=== PATIENT | male | born 1940 | race Hispanic/Latino ===

== ENCOUNTER 2017-10-26 09:24 | Inpatient (IN) | payer MEDICARE ==
[~2017-10-26] VITALS: Ht 167.6 cm; Wt 90.5 kg
[~2017-10-26 09:24] MED LIST: AEC81 PO; ALLO100T PO; CLOP75TA32 PO; FURO40TA5 PO; METO100T14 PO; METO2.5T2 PO; PRAV40TA3 PO; PRED10TA3 PO; ROSU10TA PO; TYL3 PO
[2017-10-26] MEDS ORDERED: DIATR MEGLU/DIATRIZOATE SODIUM 30 ML BOTTLE ONE (09:56)
[2017-10-26 09:57] LABS: BASOPHILS % (AUTO) 0.6 % (0.0-5.0); EOSINOPHILS % (AUTO) 0.5 % (0.0-8.0); HEMATOCRIT 40.4 % (42-54); LYMPHOCYTES % (AUTO) 19.8 % (21.0-51.0); MEAN CORPUSCULAR HEMOGLOBIN 28.4 pg (27.0-33.0); MEAN CORPUSCULAR HGB CONC 33.1 g/dL (32.0-36.0); MEAN CORPUSCULAR VOLUME 85.8 fL (79-99); MONOCYTES % (AUTO) 5.9 % (3.0-13.0); NEUTROPHILS % (AUTO) 73.2 % (40.0-77.0); NUCLEATED RED BLOOD CELLS 0.2 % (0.0-0.19); PLATELET COUNT (AUTO) 241 K/uL (130-400); RED CELL DISTRIBUTION WIDTH 18.3 % (11.0-15.5); WHITE BLOOD COUNT (AUTO) 8.5 K/uL (4.8-10.8)
[2017-10-26] MEDS ORDERED: LEVOFLOXACIN 500 MG/D5W 100 ML 100 ML ONE (09:58)
[2017-10-26 10:04] LABS: POTASSIUM 4.2 mmol/L (3.5-5.1)
[2017-10-26 10:11] LABS: ALBUMIN 2.9 g/dL (3.5-5.0); BILIRUBIN,DIRECT 0.1 mg/dL (0.0-0.3); BILIRUBIN,TOTAL 0.3 mg/dL (0.2-1.0); TOTAL PROTEIN, SERUM 7.3 g/dL (6.0-8.3)
[2017-10-26 10:19] LABS: APPEARANCE,URINE TURBID (CLEAR); BILIRUBIN,URINE NEGATIVE (NEGATIVE); GLUCOSE, URINE (UA) NEGATIVE (NEGATIVE); KETONES,URINE NEGATIVE (NEGATIVE); LEUKOCYTE ESTERASE ,URINE LARGE (NEGATIVE); NITRATE,URINE POSITIVE (NEGATIVE); OCCULT BLOOD,URINE LARGE (NEGATIVE); PH,URINE 6.5 (5.0-8.0); PROTEIN,URINE 30 (NEGATIVE); UROBILINOGEN,URINE 0.2 mg/dL (0.2-1.0)
[2017-10-26 10:20] LABS: COLOR,URINE Amber (YELLOW)
[2017-10-26 10:27] LABS: BACTERIA,URINE Many /HPF (None Seen); RBC,URINE 51-100 /HPF (0-1); SQUAMOUS EPITHELIAL CELL,UR 0-2 /LPF (0-2); WBC,URINE TNTC /HPF (0-1)
[2017-10-26] MEDS ORDERED: CLONIDINE HCL 0.1 MG TABLET PO PRN (15:15)
[2017-10-26] MEDS ORDERED: DIPHENHYDRAMINE HCL 25 MG CAPSULE PO PRN (15:15)
[2017-10-26 15:59] VITALS: BP 140/92
[2017-10-26] MEDS ORDERED: TRAM50TA4 PO (18:13)
[2017-10-26] MEDS ORDERED: LEVO500T2 PO (18:13)
[2017-10-26] MEDS ORDERED: PENI500T2 PO (18:13)
[2017-10-26] MEDS ORDERED: ATOR40TA69 PO (18:13)
[2017-10-26 19:38] VITALS: BP 115/79
[2017-10-26] MEDS ORDERED: TRAMADOL HCL 50 MG TABLET PO PRN (20:00)
[2017-10-26] MEDS: ATORVASTATIN CALCIUM 40 MG TABLET PO SCH (21:23)
[2017-10-26 23:40] VITALS: BP 111/68
[2017-10-27 03:54] LABS: HEMATOCRIT 38.3 % (42-54); MEAN CORPUSCULAR HEMOGLOBIN 27.9 pg (27.0-33.0); MEAN CORPUSCULAR HGB CONC 32.5 g/dL (32.0-36.0); MEAN CORPUSCULAR VOLUME 85.8 fL (79-99); PLATELET COUNT (AUTO) 243 K/uL (130-400); RED BLOOD CELL COUNT(AUTO) 4.46 MIL/uL (4.50-6.20); RED CELL DISTRIBUTION WIDTH 18.8 % (11.0-15.5); WHITE BLOOD COUNT (AUTO) 7.6 K/uL (4.8-10.8)
[2017-10-27 03:58] VITALS: BP 101/63
[2017-10-27 04:05] LABS: INR 1.05 (0.85-1.15)
[2017-10-27 04:06] LABS: CREATININE 2.2 mg/dL (0.5-1.5); POTASSIUM 4.1 mmol/L (3.5-5.1)
[2017-10-27 07:00] VITALS: BP 93/47
[2017-10-27] MEDS: Metoprolol Tartrate 100 MG PO SCH ×2 (09:00→20:49)
[2017-10-27] MEDS: PREDNISONE 10 MG TABLET PO SCH (09:19)
[2017-10-27] MEDS: FUROSEMIDE 40 MG TABLET PO SCH (09:19)
[2017-10-27] MEDS: ALLOPURINOL 100 MG TABLET PO SCH (09:19)
[2017-10-27] MEDS: ASPIRIN 81 MG EC TAB PO SCH (09:19)
[2017-10-27] MEDS: CLOPIDOGREL BISULFATE 75 MG TAB PO SCH (09:19)
[2017-10-27] MEDS: ENOXAPARIN SODIUM 40 MG/0.4 ML SYRINGE SQ SCH (09:20)
[2017-10-27 11:28] VITALS: BP 95/52
[2017-10-27 16:00] VITALS: BP 119/77
[2017-10-27 19:00] VITALS: BP 137/84
[2017-10-27] MEDS: ATORVASTATIN CALCIUM 40 MG TABLET PO SCH (20:45)
[2017-10-28] VITALS (7 sets, daily range): BP systolic 98–131; BP diastolic 55–85
[2017-10-28 03:57] LABS: HEMATOCRIT 37.7 % (42-54); MEAN CORPUSCULAR HEMOGLOBIN 28.1 pg (27.0-33.0); MEAN CORPUSCULAR HGB CONC 32.5 g/dL (32.0-36.0); MEAN CORPUSCULAR VOLUME 86.7 fL (79-99); NUCLEATED RED BLOOD CELLS 0.2 % (0.0-0.19); PLATELET COUNT (AUTO) 253 K/uL (130-400); RED BLOOD CELL COUNT(AUTO) 4.35 MIL/uL (4.50-6.20); RED CELL DISTRIBUTION WIDTH 18.7 % (11.0-15.5); WHITE BLOOD COUNT (AUTO) 8.8 K/uL (4.8-10.8)
[2017-10-28 04:13] LABS: INR 1.05 (0.85-1.15); PARTIAL THROMBOPLASTIN TIME 25.4 SEC (26.3-35.5)
[2017-10-28 04:30] LABS: ALANINE AMINOTRANSFERASE 27 U/L (12-78); ALBUMIN 2.5 g/dL (3.5-5.0); AMMONIA < 3 umol/L (11-32); ASPARTATE AMINOTRANSFERASE 18 U/L (10-37); BILIRUBIN,TOTAL 0.3 mg/dL (0.2-1.0); CARBON DIOXIDE 32 mmol/L (21-32); CHLORIDE 102 mmol/L (101-111); CREATININE 2.3 mg/dL (0.5-1.5); GLOMERULAR FILTR. RATE CALC 30 mL/min (>60); GLUCOSE,RANDOM 143 mg/dL (70-105); POTASSIUM 3.8 mmol/L (3.5-5.1); SODIUM SERUM 143 mmol/L (136-145); TOTAL PROTEIN, SERUM 6.3 g/dL (6.0-8.3); UREA NITROGEN, BLOOD 37 mg/dL (7-18)
[2017-10-28] MEDS: CLOPIDOGREL BISULFATE 75 MG TAB PO SCH (09:00)
[2017-10-28] MEDS: Metoprolol Tartrate 100 MG PO SCH ×2 (09:00→20:20)
[2017-10-28] MEDS: PREDNISONE 10 MG TABLET PO SCH (09:40)
[2017-10-28] MEDS: ALLOPURINOL 100 MG TABLET PO SCH (09:41)
[2017-10-28] MEDS: FUROSEMIDE 40 MG TABLET PO SCH (09:41)
[2017-10-28] MEDS: ASPIRIN 81 MG EC TAB PO SCH (09:41)
[2017-10-28] MEDS: ENOXAPARIN SODIUM 40 MG/0.4 ML SYRINGE SQ SCH (09:42)
[2017-10-28] MEDS ORDERED: MEROPENEM 1GM IVPB PREMIXED 1 GM IV SCH (13:45)
[2017-10-28] MEDS: MEROPENEM 1 GM VIAL IVP SCH ×2 (15:55→20:15)
[2017-10-28] MEDS ORDERED: PHARMACY COMMUNICATION MISC SCH (18:30)
[2017-10-28] MEDS ORDERED: GLUCAGON 1MG KIT 1 MG ML IM PRN (18:30)
[2017-10-28] MEDS ORDERED: DEXTROSE 50%-WATER 50 ML DISP.SYRIN IV PRN (18:30)
[2017-10-28] MEDS ORDERED: HUMALOG PO SS1 SQ SCH (19:15)
[2017-10-28] MEDS: ATORVASTATIN CALCIUM 40 MG TABLET PO SCH (20:16)
[2017-10-29 03:45] VITALS: BP 117/75
[2017-10-29] MEDS: MEROPENEM 1 GM VIAL IVP SCH ×3 (05:22→20:48)
[2017-10-29] MEDS: INSULIN LISPRO 100 UNIT/ML 3ML SQ SCH ×2 (06:13→20:59)
[2017-10-29 08:00] VITALS: BP 105/71
[2017-10-29] MEDS: ENOXAPARIN SODIUM 40 MG/0.4 ML SYRINGE SQ SCH (08:51)
[2017-10-29] MEDS: ALLOPURINOL 100 MG TABLET PO SCH (08:51)
[2017-10-29] MEDS: FUROSEMIDE 40 MG TABLET PO SCH (08:53)
[2017-10-29] MEDS: PREDNISONE 10 MG TABLET PO SCH (08:53)
[2017-10-29] MEDS: ASPIRIN 81 MG EC TAB PO SCH (08:53)
[2017-10-29] MEDS: Metoprolol Tartrate 100 MG PO SCH ×2 (08:54→21:00)
[2017-10-29 11:37] VITALS: BP 105/62
[2017-10-29 16:01] VITALS: BP 111/73
[2017-10-29 19:00] VITALS: BP 115/76
[2017-10-29] MEDS: ATORVASTATIN CALCIUM 40 MG TABLET PO SCH (20:48)
[2017-10-29 23:00] VITALS: BP 114/70
[2017-10-30 03:00] VITALS: BP 92/60
[2017-10-30 04:00] LABS: BASOPHILS % (AUTO) 0.5 % (0.0-5.0); EOSINOPHILS % (AUTO) 0.3 % (0.0-8.0); HEMATOCRIT 39.5 % (42-54); LYMPHOCYTES % (AUTO) 22.4 % (21.0-51.0); MEAN CORPUSCULAR HEMOGLOBIN 28.5 pg (27.0-33.0); MEAN CORPUSCULAR HGB CONC 32.8 g/dL (32.0-36.0); MEAN CORPUSCULAR VOLUME 86.7 fL (79-99); MONOCYTES % (AUTO) 8.1 % (3.0-13.0); NEUTROPHILS % (AUTO) 68.7 % (40.0-77.0); NUCLEATED RED BLOOD CELLS 0.2 % (0.0-0.19); PLATELET COUNT (AUTO) 247 K/uL (130-400); RED BLOOD CELL COUNT(AUTO) 4.56 MIL/uL (4.50-6.20); RED CELL DISTRIBUTION WIDTH 18.7 % (11.0-15.5); WHITE BLOOD COUNT (AUTO) 10.3 K/uL (4.8-10.8)
[2017-10-30 04:15] LABS: ALBUMIN 2.5 g/dL (3.5-5.0); BILIRUBIN,TOTAL 0.3 mg/dL (0.2-1.0); CREATININE 1.9 mg/dL (0.5-1.5); POTASSIUM 4.1 mmol/L (3.5-5.1); TOTAL PROTEIN, SERUM 6.4 g/dL (6.0-8.3)
[2017-10-30] MEDS: MEROPENEM 1 GM VIAL IVP SCH ×3 (05:57→21:06)
[2017-10-30] MEDS: INSULIN LISPRO 100 UNIT/ML 3ML SQ SCH ×2 (05:58→17:31)
[2017-10-30 08:00] VITALS: BP 112/54
[2017-10-30] MEDS: ENOXAPARIN SODIUM 40 MG/0.4 ML SYRINGE SQ SCH (09:04)
[2017-10-30] MEDS: ASPIRIN 81 MG EC TAB PO SCH (09:04)
[2017-10-30] MEDS: ALLOPURINOL 100 MG TABLET PO SCH (09:04)
[2017-10-30] MEDS: PREDNISONE 10 MG TABLET PO SCH (09:05)
[2017-10-30] MEDS: FUROSEMIDE 80 MG TABLET PO SCH (09:05)
[2017-10-30] MEDS: Metoprolol Tartrate 100 MG PO SCH ×2 (09:15→21:00)
[2017-10-30 12:00] VITALS: BP 115/65
[2017-10-30 16:00] VITALS: BP 109/68
[2017-10-30 19:00] VITALS: BP 122/72
[2017-10-30] MEDS: ATORVASTATIN CALCIUM 40 MG TABLET PO SCH (21:01)
[2017-10-30 23:00] VITALS: BP 117/73
[2017-10-31 03:00] VITALS: BP 99/53
[2017-10-31] MEDS: MEROPENEM 1 GM VIAL IVP SCH ×3 (06:06→21:15)
[2017-10-31] MEDS: INSULIN LISPRO 100 UNIT/ML 3ML SQ SCH (06:15)
[2017-10-31 06:58] LABS: HEMATOCRIT 41.6 % (42-54); MEAN CORPUSCULAR HGB CONC 31.9 g/dL (32.0-36.0); MEAN CORPUSCULAR VOLUME 87.6 fL (79-99); NUCLEATED RED BLOOD CELLS 0.1 % (0.0-0.19); PLATELET COUNT (AUTO) 276 K/uL (130-400); RED BLOOD CELL COUNT(AUTO) 4.75 MIL/uL (4.50-6.20); RED CELL DISTRIBUTION WIDTH 18.8 % (11.0-15.5); WHITE BLOOD COUNT (AUTO) 11.9 K/uL (4.8-10.8)
[2017-10-31 07:04] LABS: CREATININE 1.8 mg/dL (0.5-1.5); POTASSIUM 4.2 mmol/L (3.5-5.1)
[2017-10-31 08:00] VITALS: BP 114/74
[2017-10-31] MEDS: Metoprolol Tartrate 100 MG PO SCH ×2 (09:00→21:00)
[2017-10-31] MEDS: ASPIRIN 81 MG EC TAB PO SCH (09:54)
[2017-10-31] MEDS: ALLOPURINOL 100 MG TABLET PO SCH (09:54)
[2017-10-31] MEDS: FUROSEMIDE 80 MG TABLET PO SCH (09:54)
[2017-10-31] MEDS: PREDNISONE 10 MG TABLET PO SCH (09:58)
[2017-10-31] MEDS: ENOXAPARIN SODIUM 40 MG/0.4 ML SYRINGE SQ SCH (10:00)
[2017-10-31 11:00] VITALS: BP 119/77
[2017-10-31] MEDS ORDERED: PEG 3350/NA SULF,BICARB,CL/KCL 4000 ML SOLN PO SCH (13:00)
[2017-10-31 16:00] VITALS: BP 100/60
[2017-10-31 19:00] VITALS: BP 128/85
[2017-10-31] MEDS: ATORVASTATIN CALCIUM 40 MG TABLET PO SCH (21:15)
[2017-10-31 23:00] VITALS: BP 109/67
[2017-11-01] VITALS (25 sets, daily range): BP systolic 102–144; BP diastolic 61–87
[2017-11-01] MEDS: INSULIN LISPRO 100 UNIT/ML 3ML SQ SCH (06:09)
[2017-11-01 06:10] LABS: BASOPHILS % (AUTO) 0.4 % (0.0-5.0); EOSINOPHILS % (AUTO) 0.2 % (0.0-8.0); HEMATOCRIT 46.5 % (42-54); LYMPHOCYTES % (AUTO) 27.1 % (21.0-51.0); MEAN CORPUSCULAR VOLUME 87.5 fL (79-99); MONOCYTES % (AUTO) 7.3 % (3.0-13.0); NUCLEATED RED BLOOD CELLS 0.1 % (0.0-0.19); PLATELET COUNT (AUTO) 350 K/uL (130-400); RED BLOOD CELL COUNT(AUTO) 5.31 MIL/uL (4.50-6.20); RED CELL DISTRIBUTION WIDTH 18.9 % (11.0-15.5); WHITE BLOOD COUNT (AUTO) 17.7 K/uL (4.8-10.8)
[2017-11-01] MEDS: MEROPENEM 1 GM VIAL IVP SCH ×3 (06:12→21:06)
[2017-11-01 06:22] LABS: CREATININE 1.9 mg/dL (0.5-1.5); POTASSIUM 3.7 mmol/L (3.5-5.1)
[2017-11-01] MEDS: PREDNISONE 10 MG TABLET PO SCH (08:00)
[2017-11-01] MEDS: ASPIRIN 81 MG EC TAB PO SCH (09:00)
[2017-11-01] MEDS: ALLOPURINOL 100 MG TABLET PO SCH (09:00)
[2017-11-01] MEDS: Metoprolol Tartrate 100 MG PO SCH (09:00)
[2017-11-01] MEDS: ENOXAPARIN SODIUM 40 MG/0.4 ML SYRINGE SQ SCH (09:00)
[2017-11-01] MEDS ORDERED: SODIUM CHLORIDE 0.9% 1000ML 1,000 ML IV ONE (09:48)
[2017-11-01] MEDS ORDERED: PHENYLEPHRINE HCL 10 MG/ML 1ML VIAL IV ONE (10:15)
[2017-11-01] MEDS ORDERED: DEXAMETHASONE SOD PHOSPHATE 10MG/ML 1ML VIAL ONE (10:15)
[2017-11-01] MEDS ORDERED: MIDAZOLAM HCL 1 MG/ML 2ML VIAL ONE (10:15)
[2017-11-01] MEDS ORDERED: ONDANSETRON HCL MDV 20ML 2 MG/ML VIAL ONE (10:16)
[2017-11-01] MEDS ORDERED: LIDOCAINE HCL MPF 1% 5ML VIAL ONE (10:16)
[2017-11-01] MEDS ORDERED: LIDOCAINE HCL 2% JELLY 5 ML ONE (10:16)
[2017-11-01] MEDS ORDERED: LIDOCAINE HCL 4% LTA SOL 4 ML VIAL ONE (10:16)
[2017-11-01] MEDS ORDERED: SODIUM CHLORIDE 0.9% 10 ML VIAL ONE (10:16)
[2017-11-01] MEDS ORDERED: ROCURONIUM BROMIDE 10MG/1ML 5ML VL ONE (10:16)
[2017-11-01] MEDS ORDERED: PROPOFOL 10 MG/ML 20ML VIAL IV ONE (10:16)
[2017-11-01] MEDS ORDERED: LIDOCAINE PF 2% 5ML ABBOJECT ONE (10:16)
[2017-11-01] MEDS ORDERED: FENTANYL CITRATE PF 50 MCG/1 ML 5ML AMP IV ONE (10:17)
[2017-11-01] MEDS ORDERED: GLYCOPYRROLATE 0.2 MG/ML 5 ML VIAL ONE (12:35)
[2017-11-01] MEDS ORDERED: NEOSTIGMINE METHYLSULFATE 1MG/ML IV ONE (12:35)
[2017-11-01] MEDS ORDERED: ONDANSETRON HCL 4 MG/2 ML VIAL IVP PRN (12:45)
[2017-11-01] MEDS: SODIUM CHLORIDE 0.9% 1000ML 1,000 ML IV SCH ×3 (12:50→21:13)
[2017-11-01] MEDS ORDERED: MEPERIDINE-PF 25 MG/ML SYG ONE (13:13)
[2017-11-01] MEDS ORDERED: FENTANYL CITRATE PF 50 MCG/1 ML 2ML VIAL ONE (13:24)
[2017-11-01 13:36] LABS: HEMATOCRIT 39.7 % (42-54); MEAN CORPUSCULAR HGB CONC 32.5 g/dL (32.0-36.0); MEAN CORPUSCULAR VOLUME 86.2 fL (79-99); NUCLEATED RED BLOOD CELLS 0.1 % (0.0-0.19); PLATELET COUNT (AUTO) 286 K/uL (130-400); RED CELL DISTRIBUTION WIDTH 18.3 % (11.0-15.5)
[2017-11-01 13:46] LABS: CREATININE 1.6 mg/dL (0.5-1.5); POTASSIUM 3.3 mmol/L (3.5-5.1)
[2017-11-01] MEDS: METHYLPREDNISOLONE SOD SUCC 40MG/ML 1ML IVP SCH ×2 (15:49→20:55)
[2017-11-01] MEDS: MORPHINE SULFATE 4 MG/1ML SYG IV PRN ×2 (15:52→21:00)
[2017-11-02] MEDS: MORPHINE SULFATE 4 MG/1ML SYG IV PRN ×3 (00:57→18:29)
[2017-11-02 03:50] VITALS: BP 141/83
[2017-11-02] MEDS: METHYLPREDNISOLONE SOD SUCC 40MG/ML 1ML IVP SCH ×3 (04:31→21:06)
[2017-11-02 04:36] LABS: BASOPHILS % (AUTO) 0.2 % (0.0-5.0); HEMATOCRIT 37.9 % (42-54); MEAN CORPUSCULAR HGB CONC 32.3 g/dL (32.0-36.0); MEAN CORPUSCULAR VOLUME 86.5 fL (79-99); MONOCYTES % (AUTO) 3.3 % (3.0-13.0); NEUTROPHILS % (AUTO) 89.5 % (40.0-77.0); NUCLEATED RED BLOOD CELLS 0.1 % (0.0-0.19); PLATELET COUNT (AUTO) 285 K/uL (130-400); RED BLOOD CELL COUNT(AUTO) 4.38 MIL/uL (4.50-6.20); RED CELL DISTRIBUTION WIDTH 18.9 % (11.0-15.5); WHITE BLOOD COUNT (AUTO) 18.7 K/uL (4.8-10.8)
[2017-11-02 04:51] LABS: CREATININE 2.4 mg/dL (0.5-1.5); POTASSIUM 4.9 mmol/L (3.5-5.1)
[2017-11-02] MEDS: MEROPENEM 1 GM VIAL IVP SCH (05:59)
[2017-11-02 08:00] VITALS: BP 136/95
[2017-11-02 08:12] LABS: INR 1.01 (0.85-1.15); PROTHROMBIN TIME 10.6 SEC (9.6-11.6)
[2017-11-02] MEDS: SODIUM CHLORIDE 0.9% 1000ML 1,000 ML IV SCH ×2 (10:57→15:17)
[2017-11-02] MEDS: ENOXAPARIN SODIUM 40 MG/0.4 ML SYRINGE SQ SCH (10:57)
[2017-11-02 11:00] VITALS: BP 124/70
[2017-11-02 16:00] VITALS: BP 122/79
[2017-11-02 19:40] VITALS: BP 125/83
[2017-11-02 23:20] VITALS: BP 120/77
[2017-11-03 03:30] VITALS: BP 145/92
[2017-11-03] MEDS: MORPHINE SULFATE 4 MG/1ML SYG IV PRN (03:42)
[2017-11-03 04:26] LABS: BASOPHILS % (AUTO) 0.1 % (0.0-5.0); LYMPHOCYTES % (AUTO) 8.3 % (21.0-51.0); MEAN CORPUSCULAR HEMOGLOBIN 28.6 pg (27.0-33.0); MEAN CORPUSCULAR HGB CONC 32.9 g/dL (32.0-36.0); MEAN CORPUSCULAR VOLUME 86.8 fL (79-99); MONOCYTES % (AUTO) 2.9 % (3.0-13.0); NEUTROPHILS % (AUTO) 88.7 % (40.0-77.0); PLATELET COUNT (AUTO) 288 K/uL (130-400); RED BLOOD CELL COUNT(AUTO) 3.91 MIL/uL (4.50-6.20); RED CELL DISTRIBUTION WIDTH 18.9 % (11.0-15.5); WHITE BLOOD COUNT (AUTO) 22.2 K/uL (4.8-10.8)
[2017-11-03 04:29] LABS: CREATININE 2.7 mg/dL (0.5-1.5); POTASSIUM 3.9 mmol/L (3.5-5.1)
[2017-11-03] MEDS: METHYLPREDNISOLONE SOD SUCC 40MG/ML 1ML IVP SCH ×2 (04:41→10:19)
[2017-11-03] MEDS: INSULIN HUMULIN R 100 UNIT/ML 3ML SQ PRN (07:44)
[2017-11-03 08:00] VITALS: BP 142/91
[2017-11-03] MEDS: MEROPENEM 1 GM VIAL IVP SCH ×2 (10:18→17:20)
[2017-11-03] MEDS: SODIUM CHLORIDE 0.9% 1000ML 1,000 ML IV SCH (10:19)
[2017-11-03] MEDS ORDERED: ENOXAPARIN SODIUM 40 MG/0.4 ML SYRINGE SQ ONE (10:22)
[2017-11-03] MEDS: ENOXAPARIN SODIUM 40 MG/0.4 ML SYRINGE SQ SCH (10:25)
[2017-11-03 11:00] VITALS: BP 122/69
[2017-11-03] MEDS ORDERED: FUROSEMIDE 10 MG/ML 2ML VIAL IV SCH (12:45)
[2017-11-03] MEDS ORDERED: LABETALOL 20 MG/4 ML DISP.SYRIN IV PRN (14:30)
[2017-11-03 16:00] VITALS: BP 126/80
[2017-11-03] MEDS: MORPHINE SULFATE 2 MG/ML 1ML SYG IV PRN (17:21)
[2017-11-03 20:00] VITALS: BP 139/85
[2017-11-03 23:53] VITALS: BP 133/83
[2017-11-04] VITALS (13 sets, daily range): BP systolic 65–138; BP diastolic 44–95
[2017-11-04] MEDS: MEROPENEM 1 GM VIAL IVP SCH ×3 (02:17→22:04)
[2017-11-04 04:06] LABS: BASOPHILS % (AUTO) 0.1 % (0.0-5.0); HEMATOCRIT 32.7 % (42-54); LYMPHOCYTES % (AUTO) 7.3 % (21.0-51.0); MEAN CORPUSCULAR HEMOGLOBIN 27.8 pg (27.0-33.0); MEAN CORPUSCULAR VOLUME 86.6 fL (79-99); MONOCYTES % (AUTO) 7.6 % (3.0-13.0); NUCLEATED RED BLOOD CELLS 0.1 % (0.0-0.19); PLATELET COUNT (AUTO) 251 K/uL (130-400); RED BLOOD CELL COUNT(AUTO) 3.77 MIL/uL (4.50-6.20); RED CELL DISTRIBUTION WIDTH 18.7 % (11.0-15.5)
[2017-11-04 04:25] LABS: CREATININE 2.1 mg/dL (0.5-1.5); POTASSIUM 3.2 mmol/L (3.5-5.1)
[2017-11-04] MEDS: MORPHINE SULFATE 2 MG/ML 1ML SYG IV PRN ×2 (06:46→21:46)
[2017-11-04] MEDS: SODIUM CHLORIDE 0.9% 1000ML 1,000 ML IV SCH (06:49)
[2017-11-04] MEDS: METHYLPREDNISOLONE SOD SUCC 40MG/ML 1ML IVP SCH (10:20)
[2017-11-04] MEDS ORDERED: ENOXAPARIN SODIUM 40 MG/0.4 ML SYRINGE SQ ONE (10:23)
[2017-11-04] MEDS: ENOXAPARIN SODIUM 40 MG/0.4 ML SYRINGE SQ SCH (10:25)
[2017-11-04] MEDS ORDERED: DEXTROSE 5%-WATER 1,000 ML IV SCH (11:00)
[2017-11-04] MEDS ORDERED: POTASSIUM CHLORIDE 10% ELIXIR 20 MEQ/15 ML UDCUP PO PRN (16:00)
[2017-11-04] MEDS ORDERED: LIDOCAINE HCL-MPF 1% 2ML VIAL IVP PRN (16:00)
[2017-11-04 17:12] LABS: MEAN CORPUSCULAR HEMOGLOBIN 27.8 pg (27.0-33.0); MEAN CORPUSCULAR HGB CONC 31.3 g/dL (32.0-36.0); MEAN CORPUSCULAR VOLUME 88.9 fL (79-99); NUCLEATED RED BLOOD CELLS 0.3 % (0.0-0.19); PLATELET COUNT (AUTO) 310 K/uL (130-400); RED BLOOD CELL COUNT(AUTO) 3.26 MIL/uL (4.50-6.20); RED CELL DISTRIBUTION WIDTH 18.5 % (11.0-15.5); WHITE BLOOD COUNT (AUTO) 25.5 K/uL (4.8-10.8)
[2017-11-04] MEDS ORDERED: SODIUM CHLORIDE 0.9% 1000ML 1,000 ML IV ONE (17:17)
[2017-11-04 17:23] LABS: CARBON DIOXIDE 41 mmol/L (21-32); CHLORIDE 102 mmol/L (101-111); CREATININE 2.5 mg/dL (0.5-1.5); GLOMERULAR FILTR. RATE CALC 27 mL/min (>60); GLUCOSE,RANDOM 362 mg/dL (70-105); INR 1.09 (0.85-1.15); PARTIAL THROMBOPLASTIN TIME 24.7 SEC (26.3-35.5); POTASSIUM 3.7 mmol/L (3.5-5.1); PROTHROMBIN TIME 11.4 SEC (9.6-11.6); SODIUM SERUM 155 mmol/L (136-145); UREA NITROGEN, BLOOD 65 mg/dL (7-18)
[2017-11-04] MEDS ORDERED: DEXTROSE 5 %-0.45 % NACL 1,000 ML IV ONE (17:25)
[2017-11-04 17:34] LABS: B-TYPE NATRIURETIC PEPTIDE 517 pg/mL (0-100)
[2017-11-04 17:36] LABS: ALANINE AMINOTRANSFERASE 26 U/L (12-78); ALBUMIN 2.2 g/dL (3.5-5.0); ASPARTATE AMINOTRANSFERASE 30 U/L (10-37); BILIRUBIN,DIRECT 0.1 mg/dL (0.0-0.3); BILIRUBIN,TOTAL 0.6 mg/dL (0.2-1.0); CREATINE KINASE MB < 0.5 ng/mL (0.5-3.6); CREATINE KINASE, TOTAL 94 U/L (21-232); MYOGLOBIN 665 ng/mL (10-92); TOTAL PROTEIN, SERUM 5.4 g/dL (6.0-8.3); TROPONIN I 0.16 ng/mL (0.00-0.06)
[2017-11-04] MEDS ORDERED: DEXTROSE 5 %-0.45 % NACL 1,000 ML IV SCH (18:00)
[2017-11-04] MEDS ORDERED: SODIUM CHLORIDE 0.9% 500ML 500 ML IV SCH ×2 (18:00→18:30)
[2017-11-04] MEDS ORDERED: 1/2 NORMAL SALINE 1,000 ML IV SCH (18:15)
[2017-11-04 18:28] LABS: ABG BASE EXCESS 13.4 mmol/L (-2.0-3.0); ABG HCO3 37.5 mmol/L (21.0-28.0); ABG OXYGEN SATURATION 98.2 % (95.0-99.0); ABG PCO2 46 mmHg (35-48)
[2017-11-04] MEDS ORDERED: CALCIUM GLUCONATE 1 GM/10 ML VIAL IV STA (18:28)
[2017-11-04] MEDS ORDERED: NOREPINEPHRINE 4MG/NS 250ML 250 ML IV SCH (18:30)
[2017-11-04] MEDS ORDERED: ALBUMIN (HUMAN) 25% 100 ML IV ONE (18:36)
[2017-11-04] MEDS ORDERED: DEXTROSE 5%-WATER 500 ML IV ONE (18:37)
[2017-11-04] MEDS: DEXTROSE 5%-WATER 500 ML IV SCH ×3 (18:45→19:30)
[2017-11-04] MEDS: ALBUMIN (HUMAN) 25% 100 ML IV SCH (18:46)
[2017-11-04] MEDS: HYDROCORTISONE SOD SUCCINATE 100 MG/2 ML VIAL IV SCH (18:51)
[2017-11-04] MEDS: PANTOPRAZOLE 40 MG/VIAL IVP SCH (18:55)
[2017-11-04] MEDS ORDERED: COMPOUND IV REFRIGERATED 1 EACH IVSOLN MISC PRN (19:00)
[2017-11-04] MEDS ORDERED: VANCOMYCIN PROTOCOL PER PHARMACY IV SCH (19:00)
[2017-11-04] MEDS ORDERED: VANCOMYCIN 1GM+NS 250ML 250 ML IV SCH (19:00)
[2017-11-04] MEDS ORDERED: MAGNESIUM 2GM PREMIX 50ML 50 ML IV ONE (22:18)
[2017-11-05] VITALS (49 sets, daily range): BP systolic 88–142; BP diastolic 18–82
[2017-11-05] MEDS ORDERED: DEXTROSE 5%-WATER 1,000 ML IV ONE ×2 (01:28→14:36)
[2017-11-05] MEDS: HYDROCORTISONE SOD SUCCINATE 100 MG/2 ML VIAL IV SCH ×3 (01:35→17:42)
[2017-11-05] MEDS: MORPHINE SULFATE 2 MG/ML 1ML SYG IV PRN ×2 (02:13→13:49)
[2017-11-05 06:10] LABS: BASOPHILS % (AUTO) 0.2 % (0.0-5.0); LYMPHOCYTES % (AUTO) 5.2 % (21.0-51.0); MEAN CORPUSCULAR HEMOGLOBIN 28.3 pg (27.0-33.0); MEAN CORPUSCULAR HGB CONC 32.1 g/dL (32.0-36.0); MONOCYTES % (AUTO) 7.4 % (3.0-13.0); NEUTROPHILS % (AUTO) 87.2 % (40.0-77.0); NUCLEATED RED BLOOD CELLS 0.5 % (0.0-0.19); PLATELET COUNT (AUTO) 245 K/uL (130-400); RED BLOOD CELL COUNT(AUTO) 2.28 MIL/uL (4.50-6.20); RED CELL DISTRIBUTION WIDTH 17.8 % (11.0-15.5); WHITE BLOOD COUNT (AUTO) 19.5 K/uL (4.8-10.8)
[2017-11-05 06:27] LABS: HEMATOCRIT 20.1 % (42-54)
[2017-11-05 06:34] LABS: ALBUMIN 2.5 g/dL (3.5-5.0); BILIRUBIN,TOTAL 0.6 mg/dL (0.2-1.0); CREATININE 2.7 mg/dL (0.5-1.5); MAGNESIUM 2.9 mg/dL (1.80-2.40); PHOSPHORUS 4.3 mg/dL (2.5-4.9)
[2017-11-05 06:51] LABS: POTASSIUM 3.1 mmol/L (3.5-5.1)
[2017-11-05] MEDS ORDERED: SODIUM CHLORIDE 0.9% 250 ML IV ONE ×2 (07:08→14:36)
[2017-11-05] MEDS ORDERED: ENOXAPARIN SODIUM 40 MG/0.4 ML SYRINGE SQ SCH (09:00)
[2017-11-05] MEDS: PANTOPRAZOLE 40 MG/VIAL IVP SCH (10:53)
[2017-11-05] MEDS: MEROPENEM 1 GM VIAL IVP SCH ×2 (10:53→20:45)
[2017-11-05] MEDS: FLUCONAZOLE 200 MG/NS 100 ML 100 ML IV SCH (10:53)
[2017-11-05] MEDS: DEXTROSE 5%-LACTATED RINGERS 1,000 ML IV SCH (17:42)
[2017-11-05 18:11] LABS: HEMATOCRIT 26.5 % (42-54); MEAN CORPUSCULAR HEMOGLOBIN 29.1 pg (27.0-33.0); MEAN CORPUSCULAR HGB CONC 33.4 g/dL (32.0-36.0); MEAN CORPUSCULAR VOLUME 87.1 fL (79-99); NUCLEATED RED BLOOD CELLS 0.4 % (0.0-0.19); PLATELET COUNT (AUTO) 180 K/uL (130-400); RED BLOOD CELL COUNT(AUTO) 3.05 MIL/uL (4.50-6.20); WHITE BLOOD COUNT (AUTO) 15.1 K/uL (4.8-10.8)
[2017-11-05] MEDS: ALBUMIN (HUMAN) 25% 100 ML IV SCH (18:30)
[2017-11-05 18:38] LABS: BAND NEUTROPHILS % (MANUAL) 1 % (0-2); LYMPHOCYTES % (MANUAL) 9 % (22-44); MONOCYTES % (MANUAL) 3 % (2-9); SEGMENTED NEUTROPHILS % 87 % (40-70)
[2017-11-05 18:39] LABS: PLATELET MORPHOLOGY COMMENT ADEQUATE
[2017-11-05] MEDS: POTASSIUM CHLORIDE 20MEQ/100ML 100 ML IV PRN (18:56)
[2017-11-05] MEDS: VANCOMYCIN 0.75 GM in N.S. 250 ML IV SCH (18:56)
[2017-11-06] VITALS (16 sets, daily range): BP systolic 123–159; BP diastolic 56–88
[2017-11-06] MEDS: DEXTROSE 5%-LACTATED RINGERS 1,000 ML IV SCH ×2 (01:25→10:16)
[2017-11-06] MEDS: HYDROCORTISONE SOD SUCCINATE 100 MG/2 ML VIAL IV SCH ×3 (01:59→18:11)
[2017-11-06] MEDS: MORPHINE SULFATE 2 MG/ML 1ML SYG IV PRN ×2 (02:00→21:17)
[2017-11-06 03:58] LABS: MEAN CORPUSCULAR HEMOGLOBIN 28.5 pg (27.0-33.0); MEAN CORPUSCULAR HGB CONC 32.5 g/dL (32.0-36.0); MEAN CORPUSCULAR VOLUME 87.5 fL (79-99); NUCLEATED RED BLOOD CELLS 0.3 % (0.0-0.19); PLATELET COUNT (AUTO) 178 K/uL (130-400); RED BLOOD CELL COUNT(AUTO) 2.97 MIL/uL (4.50-6.20); RED CELL DISTRIBUTION WIDTH 16.4 % (11.0-15.5); WHITE BLOOD COUNT (AUTO) 13.4 K/uL (4.8-10.8)
[2017-11-06 04:25] LABS: ALBUMIN 2.4 g/dL (3.5-5.0); BILIRUBIN,TOTAL 0.6 mg/dL (0.2-1.0); CREATININE 1.9 mg/dL (0.5-1.5); MAGNESIUM 2.7 mg/dL (1.80-2.40); PHOSPHORUS 2.6 mg/dL (2.5-4.9); TOTAL PROTEIN, SERUM 4.8 g/dL (6.0-8.3)
[2017-11-06 04:32] LABS: INR 1.07 (0.85-1.15); PARTIAL THROMBOPLASTIN TIME 22.1 SEC (26.3-35.5); PROTHROMBIN TIME 11.2 SEC (9.6-11.6)
[2017-11-06 04:37] LABS: POTASSIUM 2.9 mmol/L (3.5-5.1)
[2017-11-06] MEDS: POTASSIUM CHLORIDE 20MEQ/100ML 100 ML IV PRN ×3 (05:18→13:45)
[2017-11-06] MEDS: MEROPENEM 1 GM VIAL IVP SCH ×2 (07:46→21:16)
[2017-11-06] MEDS: FLUCONAZOLE 200 MG/NS 100 ML 100 ML IV SCH (07:46)
[2017-11-06] MEDS: PANTOPRAZOLE 40 MG/VIAL IVP SCH (10:16)
[2017-11-06] MEDS: INSULIN HUMULIN R 100 UNIT/ML 3ML SQ PRN (11:41)
[2017-11-06] MEDS: LACTATED RINGERS 1000ML 1,000 ML IV SCH (13:11)
[2017-11-06] MEDS: VANCOMYCIN 0.75 GM in N.S. 250 ML IV SCH (18:12)
[2017-11-06] MEDS ORDERED: ONDANSETRON HCL MDV 20ML 2 MG/ML VIAL ONE (19:32)
[2017-11-07] VITALS (7 sets, daily range): BP systolic 103–157; BP diastolic 49–96
[2017-11-07] MEDS: HYDROCORTISONE SOD SUCCINATE 100 MG/2 ML VIAL IV SCH ×2 (02:05→09:41)
[2017-11-07] MEDS: LACTATED RINGERS 1000ML 1,000 ML IV SCH (02:14)
[2017-11-07] MEDS: INSULIN HUMULIN R 100 UNIT/ML 3ML SQ PRN ×3 (07:11→21:44)
[2017-11-07 08:47] LABS: BASOPHILS % (AUTO) 0.2 % (0.0-5.0); HEMATOCRIT 27.3 % (42-54); LYMPHOCYTES % (AUTO) 6.8 % (21.0-51.0); MEAN CORPUSCULAR HEMOGLOBIN 29.1 pg (27.0-33.0); MEAN CORPUSCULAR HGB CONC 32.5 g/dL (32.0-36.0); MEAN CORPUSCULAR VOLUME 89.4 fL (79-99); MONOCYTES % (AUTO) 5.2 % (3.0-13.0); NEUTROPHILS % (AUTO) 87.8 % (40.0-77.0); NUCLEATED RED BLOOD CELLS 0.3 % (0.0-0.19); PLATELET COUNT (AUTO) 178 K/uL (130-400); RED BLOOD CELL COUNT(AUTO) 3.05 MIL/uL (4.50-6.20); RED CELL DISTRIBUTION WIDTH 16.6 % (11.0-15.5); WHITE BLOOD COUNT (AUTO) 15.7 K/uL (4.8-10.8)
[2017-11-07] MEDS: PANTOPRAZOLE 40 MG/VIAL IVP SCH (09:00)
[2017-11-07] MEDS ORDERED: HYDROCORTISONE SOD SUCCINATE 100 MG/2 ML VIAL IV SCH (09:00)
[2017-11-07 09:06] LABS: CREATININE 1.6 mg/dL (0.5-1.5); POTASSIUM 3.4 mmol/L (3.5-5.1)
[2017-11-07] MEDS: FLUCONAZOLE 200 MG/NS 100 ML 100 ML IV SCH (09:40)
[2017-11-07] MEDS: MEROPENEM 1 GM VIAL IVP SCH ×2 (09:41→21:30)
[2017-11-07] MEDS: MORPHINE SULFATE 2 MG/ML 1ML SYG IV PRN ×2 (09:51→15:21)
[2017-11-07] MEDS: PANTOPRAZOLE SODIUM 40 MG TABLET.DR PO SCH (11:35)
[2017-11-07] MEDS: METOPROLOL TARTRATE 50 MG TAB PO SCH ×2 (11:35→21:30)
[2017-11-07] MEDS: PREDNISONE 20 MG TABLET PO SCH (14:00)
[2017-11-07] MEDS: DEXTROSE 5%-WATER 1,000 ML IV SCH (15:21)
[2017-11-07] MEDS ORDERED: VANCOMYCIN 1GM+NS 250ML 250 ML IV SCH (19:00)
[2017-11-07] MEDS ORDERED: SODIUM CHLORIDE 0.9% IV SCH (19:00)
[2017-11-07] MEDS ORDERED: VANCOMYCIN IV SCH (19:00)
[2017-11-07] MEDS: VANCOMYCIN 1.25 GM in SODIUM CHLORIDE 0.9% 250 ML IV SCH (21:31)
[2017-11-07] MEDS: POTASSIUM CHLORIDE 20 MEQ ERTAB PO PRN (21:31)
[2017-11-08] MEDS: POTASSIUM CHLORIDE 20 MEQ ERTAB PO PRN (01:51)
[2017-11-08] MEDS: DEXTROSE 5%-WATER 1,000 ML IV SCH ×2 (02:34→17:51)
[2017-11-08 04:00] VITALS: BP 108/67
[2017-11-08] MEDS: INSULIN HUMULIN R 100 UNIT/ML 3ML SQ SCH ×4 (06:22→21:23)
[2017-11-08 06:30] LABS: BASOPHILS % (AUTO) 0.4 % (0.0-5.0); EOSINOPHILS % (AUTO) 0.3 % (0.0-8.0); HEMATOCRIT 26.6 % (42-54); LYMPHOCYTES % (AUTO) 9.6 % (21.0-51.0); MEAN CORPUSCULAR HEMOGLOBIN 28.5 pg (27.0-33.0); MEAN CORPUSCULAR HGB CONC 30.9 g/dL (32.0-36.0); MEAN CORPUSCULAR VOLUME 92.2 fL (79-99); NEUTROPHILS % (AUTO) 82.7 % (40.0-77.0); NUCLEATED RED BLOOD CELLS 0.3 % (0.0-0.19); PLATELET COUNT (AUTO) 180 K/uL (130-400); RED BLOOD CELL COUNT(AUTO) 2.88 MIL/uL (4.50-6.20); RED CELL DISTRIBUTION WIDTH 16.5 % (11.0-15.5); WHITE BLOOD COUNT (AUTO) 15.2 K/uL (4.8-10.8)
[2017-11-08 06:39] LABS: CREATININE 1.4 mg/dL (0.5-1.5); POTASSIUM 3.8 mmol/L (3.5-5.1)
[2017-11-08 08:12] VITALS: BP 104/63
[2017-11-08] MEDS: FLUCONAZOLE 200 MG/NS 100 ML 100 ML IV SCH (10:07)
[2017-11-08] MEDS: METOPROLOL TARTRATE 50 MG TAB PO SCH ×2 (10:08→21:13)
[2017-11-08] MEDS: PREDNISONE 20 MG TABLET PO SCH (10:08)
[2017-11-08] MEDS: PANTOPRAZOLE SODIUM 40 MG TABLET.DR PO SCH (10:08)
[2017-11-08] MEDS: MEROPENEM 1 GM VIAL IVP SCH ×2 (10:39→21:13)
[2017-11-08 12:06] VITALS: BP 102/52
[2017-11-08] MEDS: MORPHINE SULFATE 2 MG/ML 1ML SYG IV PRN ×2 (13:05→21:13)
[2017-11-08 16:00] VITALS: BP 103/63
[2017-11-08 20:00] VITALS: BP 109/53
[2017-11-08] MEDS: VANCOMYCIN 1.25 GM in SODIUM CHLORIDE 0.9% 250 ML IV SCH (21:13)
[2017-11-09] VITALS: BP 109/58
[2017-11-09 04:00] VITALS: BP 105/61
[2017-11-09 04:26] LABS: HEMATOCRIT 23.8 % (42-54); MEAN CORPUSCULAR HEMOGLOBIN 30.4 pg (27.0-33.0); MEAN CORPUSCULAR HGB CONC 33.8 g/dL (32.0-36.0); NUCLEATED RED BLOOD CELLS 0.1 % (0.0-0.19); PLATELET COUNT (AUTO) 156 K/uL (130-400); RED BLOOD CELL COUNT(AUTO) 2.64 MIL/uL (4.50-6.20); RED CELL DISTRIBUTION WIDTH 16.1 % (11.0-15.5); WHITE BLOOD COUNT (AUTO) 13.8 K/uL (4.8-10.8)
[2017-11-09 04:34] LABS: CREATININE 1.4 mg/dL (0.5-1.5); POTASSIUM 4.1 mmol/L (3.5-5.1)
[2017-11-09] MEDS: INSULIN HUMULIN R 100 UNIT/ML 3ML SQ SCH ×4 (06:02→22:57)
[2017-11-09] MEDS: PANTOPRAZOLE SODIUM 40 MG TABLET.DR PO SCH (06:13)
[2017-11-09 07:52] VITALS: BP 117/69
[2017-11-09] MEDS: DEXTROSE 5%-WATER 1,000 ML IV SCH ×2 (08:32→20:20)
[2017-11-09] MEDS: MORPHINE SULFATE 2 MG/ML 1ML SYG IV PRN (08:34)
[2017-11-09] MEDS: FLUCONAZOLE 200 MG/NS 100 ML 100 ML IV SCH (08:38)
[2017-11-09] MEDS: MEROPENEM 1 GM VIAL IVP SCH ×2 (08:42→22:46)
[2017-11-09] MEDS: METOPROLOL TARTRATE 50 MG TAB PO SCH ×2 (08:45→22:46)
[2017-11-09] MEDS: PREDNISONE 20 MG TABLET PO SCH (08:45)
[2017-11-09] MEDS ORDERED: ALBUMIN 25% IVP SCH (13:00)
[2017-11-09] MEDS ORDERED: FUROSEMIDE IVP SCH (13:00)
[2017-11-09 13:07] VITALS: BP 97/60
[2017-11-09 17:02] VITALS: BP 110/55
[2017-11-09 20:00] VITALS: BP 117/61
[2017-11-09] MEDS: VANCOMYCIN 1.25 GM in SODIUM CHLORIDE 0.9% 250 ML IV SCH (22:46)
[2017-11-10] VITALS: BP 100/49
[2017-11-10 04:00] VITALS: BP 117/58
[2017-11-10 04:37] LABS: MEAN CORPUSCULAR HEMOGLOBIN 30.4 pg (27.0-33.0); MEAN CORPUSCULAR HGB CONC 33.6 g/dL (32.0-36.0); MEAN CORPUSCULAR VOLUME 90.6 fL (79-99); NUCLEATED RED BLOOD CELLS 0.1 % (0.0-0.19); PLATELET COUNT (AUTO) 137 K/uL (130-400); RED BLOOD CELL COUNT(AUTO) 2.23 MIL/uL (4.50-6.20); RED CELL DISTRIBUTION WIDTH 16.8 % (11.0-15.5); WHITE BLOOD COUNT (AUTO) 10.7 K/uL (4.8-10.8)
[2017-11-10 04:39] LABS: HEMATOCRIT 20.2 % (42-54)
[2017-11-10 04:55] LABS: ALBUMIN 3.5 g/dL (3.5-5.0); BILIRUBIN,DIRECT 0.2 mg/dL (0.0-0.3); BILIRUBIN,TOTAL 0.8 mg/dL (0.2-1.0); CREATININE 1.5 mg/dL (0.5-1.5); POTASSIUM 3.8 mmol/L (3.5-5.1); TOTAL PROTEIN, SERUM 5.6 g/dL (6.0-8.3)
[2017-11-10] MEDS: INSULIN HUMULIN R 100 UNIT/ML 3ML SQ SCH ×4 (06:50→22:26)
[2017-11-10 07:00] VITALS: BP 122/60
[2017-11-10] MEDS: PANTOPRAZOLE SODIUM 40 MG TABLET.DR PO SCH (09:30)
[2017-11-10] MEDS: PREDNISONE 20 MG TABLET PO SCH (09:30)
[2017-11-10] MEDS: METOPROLOL TARTRATE 50 MG TAB PO SCH ×2 (09:30→22:05)
[2017-11-10] MEDS: FLUCONAZOLE 200 MG/NS 100 ML 100 ML IV SCH (09:30)
[2017-11-10] MEDS: DEXTROSE 5%-WATER 1,000 ML IV SCH (09:31)
[2017-11-10] MEDS: MEROPENEM 1 GM VIAL IVP SCH ×2 (09:31→22:03)
[2017-11-10 11:00] VITALS: BP 113/59
[2017-11-10] MEDS ORDERED: ALBUMIN (HUMAN) 25% 100 ML IV SCH (14:00)
[2017-11-10] MEDS: MORPHINE SULFATE 2 MG/ML 1ML SYG IV PRN (14:58)
[2017-11-10] MEDS ORDERED: ALBUMIN 25% IV SCH (15:00)
[2017-11-10] MEDS ORDERED: ALBUMIN 25% IVP SCH (15:00)
[2017-11-10] MEDS ORDERED: FUROSEMIDE IVP SCH (15:00)
[2017-11-10] MEDS ORDERED: FUROSEMIDE IV SCH (15:00)
[2017-11-10 16:00] VITALS: BP_SYST 117; BP_SYST 142; BP_DIAS 60; BP_DIAS 68
[2017-11-10 20:00] VITALS: BP 128/60
[2017-11-10] MEDS: FUROSEMIDE 10 MG/ML 2ML VIAL IV SCH (21:55)
[2017-11-10] MEDS: VANCOMYCIN 1.25 GM in SODIUM CHLORIDE 0.9% 250 ML IV SCH (22:15)
[2017-11-11] VITALS (7 sets, daily range): BP systolic 122–146; BP diastolic 63–82
[2017-11-11 05:55] LABS: HEMATOCRIT 29.2 % (42-54); MEAN CORPUSCULAR HEMOGLOBIN 31.2 pg (27.0-33.0); MEAN CORPUSCULAR HGB CONC 34.6 g/dL (32.0-36.0); MEAN CORPUSCULAR VOLUME 90.2 fL (79-99); NUCLEATED RED BLOOD CELLS 0.2 % (0.0-0.19); PLATELET COUNT (AUTO) 131 K/uL (130-400); RED BLOOD CELL COUNT(AUTO) 3.24 MIL/uL (4.50-6.20); WHITE BLOOD COUNT (AUTO) 11.7 K/uL (4.8-10.8)
[2017-11-11 05:57] LABS: ALBUMIN 3.8 g/dL (3.5-5.0); BILIRUBIN,TOTAL 0.8 mg/dL (0.2-1.0); CREATININE 1.4 mg/dL (0.5-1.5); POTASSIUM 3.7 mmol/L (3.5-5.1)
[2017-11-11] MEDS: INSULIN HUMULIN R 100 UNIT/ML 3ML SQ SCH ×3 (06:16→22:26)
[2017-11-11] MEDS: FUROSEMIDE 10 MG/ML 2ML VIAL IV SCH (06:45)
[2017-11-11] MEDS ORDERED: MAGNESIUM 2GM PREMIX 50ML 50 ML IV PRN (07:15)
[2017-11-11] MEDS ORDERED: ALBUMIN (HUMAN) 25% 100 ML IV SCH (09:00)
[2017-11-11] MEDS: DEXTROSE 5%-WATER 1,000 ML IV SCH (12:20)
[2017-11-11] MEDS: PANTOPRAZOLE SODIUM 40 MG TABLET.DR PO SCH (12:26)
[2017-11-11] MEDS: MEROPENEM 1 GM VIAL IVP SCH ×2 (12:26→22:12)
[2017-11-11] MEDS: METOPROLOL TARTRATE 50 MG TAB PO SCH ×2 (12:26→22:12)
[2017-11-11] MEDS: PREDNISONE 20 MG TABLET PO SCH (12:26)
[2017-11-11] MEDS: FLUCONAZOLE 200 MG/NS 100 ML 100 ML IV SCH (12:26)
[2017-11-11] MEDS: MORPHINE SULFATE 2 MG/ML 1ML SYG IV PRN (13:57)
[2017-11-11] MEDS: VANCOMYCIN 1.25 GM in SODIUM CHLORIDE 0.9% 250 ML IV SCH (22:12)
[2017-11-12 04:00] VITALS: BP 120/69
[2017-11-12 05:43] LABS: HEMATOCRIT 31.3 % (42-54); MEAN CORPUSCULAR HEMOGLOBIN 29.6 pg (27.0-33.0); MEAN CORPUSCULAR HGB CONC 32.7 g/dL (32.0-36.0); MEAN CORPUSCULAR VOLUME 90.4 fL (79-99); NUCLEATED RED BLOOD CELLS 0.2 % (0.0-0.19); PLATELET COUNT (AUTO) 154 K/uL (130-400); RED BLOOD CELL COUNT(AUTO) 3.46 MIL/uL (4.50-6.20); RED CELL DISTRIBUTION WIDTH 17.6 % (11.0-15.5); WHITE BLOOD COUNT (AUTO) 11.6 K/uL (4.8-10.8)
[2017-11-12 06:16] LABS: ALBUMIN 3.2 g/dL (3.5-5.0); BILIRUBIN,TOTAL 0.6 mg/dL (0.2-1.0); CREATININE 1.3 mg/dL (0.5-1.5); PHOSPHORUS 2.9 mg/dL (2.5-4.9); TOTAL PROTEIN, SERUM 5.6 g/dL (6.0-8.3)
[2017-11-12] MEDS: INSULIN HUMULIN R 100 UNIT/ML 3ML SQ SCH ×4 (07:30→21:36)
[2017-11-12 08:08] VITALS: BP 153/69
[2017-11-12 12:01] VITALS: BP 116/64
[2017-11-12] MEDS: PANTOPRAZOLE SODIUM 40 MG TABLET.DR PO SCH (12:20)
[2017-11-12] MEDS: MEROPENEM 1 GM VIAL IVP SCH ×2 (12:21→21:36)
[2017-11-12] MEDS: PREDNISONE 20 MG TABLET PO SCH (12:21)
[2017-11-12] MEDS: FUROSEMIDE 10 MG/ML 2ML VIAL IV SCH ×2 (12:21→21:37)
[2017-11-12] MEDS: FLUCONAZOLE 100 MG TAB PO SCH (12:22)
[2017-11-12] MEDS: METOPROLOL TARTRATE 50 MG TAB PO SCH ×2 (12:23→21:37)
[2017-11-12 15:47] VITALS: BP 128/71
[2017-11-12 19:48] VITALS: BP 123/68
[2017-11-12] MEDS: VANCOMYCIN 1.25 GM in SODIUM CHLORIDE 0.9% 250 ML IV SCH (21:37)
[2017-11-12 23:54] VITALS: BP 120/57
[2017-11-13 04:27] LABS: HEMATOCRIT 32.7 % (42-54); MEAN CORPUSCULAR HEMOGLOBIN 30.4 pg (27.0-33.0); MEAN CORPUSCULAR HGB CONC 33.7 g/dL (32.0-36.0); MEAN CORPUSCULAR VOLUME 90.1 fL (79-99); NUCLEATED RED BLOOD CELLS 0.1 % (0.0-0.19); PLATELET COUNT (AUTO) 174 K/uL (130-400); RED BLOOD CELL COUNT(AUTO) 3.63 MIL/uL (4.50-6.20); RED CELL DISTRIBUTION WIDTH 17.7 % (11.0-15.5); WHITE BLOOD COUNT (AUTO) 13.1 K/uL (4.8-10.8)
[2017-11-13 04:34] LABS: CREATININE 1.5 mg/dL (0.5-1.5); MAGNESIUM 1.9 mg/dL (1.80-2.40); POTASSIUM 4.2 mmol/L (3.5-5.1)
[2017-11-13 04:35] VITALS: BP 120/68
[2017-11-13] MEDS: PANTOPRAZOLE SODIUM 40 MG TABLET.DR PO SCH (06:08)
[2017-11-13] MEDS: INSULIN HUMULIN R 100 UNIT/ML 3ML SQ SCH ×4 (06:54→21:30)
[2017-11-13 08:25] VITALS: BP 112/62
[2017-11-13] MEDS ORDERED: ACETAMINOPHEN 325 MG TAB PO PRN (09:30)
[2017-11-13 12:00] VITALS: BP 141/81
[2017-11-13] MEDS: FUROSEMIDE 10 MG/ML 2ML VIAL IV SCH ×2 (12:19→20:59)
[2017-11-13] MEDS: LACTULOSE 20 GM/30 ML UDCUP PO SCH ×3 (12:19→20:58)
[2017-11-13] MEDS: MEROPENEM 1 GM VIAL IVP SCH ×2 (12:19→20:59)
[2017-11-13] MEDS: PREDNISONE 20 MG TABLET PO SCH (12:20)
[2017-11-13] MEDS: FLUCONAZOLE 100 MG TAB PO SCH (12:21)
[2017-11-13] MEDS: METOPROLOL TARTRATE 50 MG TAB PO SCH ×2 (12:25→20:59)
[2017-11-13 15:52] VITALS: BP 118/76
[2017-11-13 19:48] VITALS: BP 106/60
[2017-11-13] MEDS: VANCOMYCIN 1.25 GM in SODIUM CHLORIDE 0.9% 250 ML IV SCH (21:00)
[2017-11-14] VITALS (7 sets, daily range): BP systolic 112–128; BP diastolic 58–71
[2017-11-14] MEDS: LACTULOSE 20 GM/30 ML UDCUP PO SCH (04:09)
[2017-11-14] MEDS: PANTOPRAZOLE SODIUM 40 MG TABLET.DR PO SCH (06:25)
[2017-11-14] MEDS: INSULIN HUMULIN R 100 UNIT/ML 3ML SQ SCH ×4 (06:26→21:12)
[2017-11-14] MEDS: FUROSEMIDE 10 MG/ML 2ML VIAL IV SCH ×2 (10:10→21:04)
[2017-11-14] MEDS: MEROPENEM 1 GM VIAL IVP SCH ×2 (10:10→21:04)
[2017-11-14] MEDS: FLUCONAZOLE 100 MG TAB PO SCH (10:10)
[2017-11-14] MEDS: PREDNISONE 20 MG TABLET PO SCH (10:10)
[2017-11-14] MEDS: METOPROLOL TARTRATE 50 MG TAB PO SCH ×2 (10:10→21:04)
[2017-11-14] MEDS: VANCOMYCIN 1.25 GM in SODIUM CHLORIDE 0.9% 250 ML IV SCH (21:51)
[2017-11-15 04:42] VITALS: BP 124/66
[2017-11-15] MEDS: INSULIN HUMULIN R 100 UNIT/ML 3ML SQ SCH ×2 (06:11→11:30)
[2017-11-15] MEDS: PANTOPRAZOLE SODIUM 40 MG TABLET.DR PO SCH (06:11)
[2017-11-15 07:00] VITALS: BP 125/70
[2017-11-15] MEDS: METOPROLOL TARTRATE 50 MG TAB PO SCH (09:00)
[2017-11-15 11:00] VITALS: BP 112/63
[2017-11-15] MEDS: PREDNISONE 20 MG TABLET PO SCH (12:37)
[2017-11-15] MEDS: MEROPENEM 1 GM VIAL IVP SCH (12:38)
[2017-11-15] MEDS: FUROSEMIDE 10 MG/ML 2ML VIAL IV SCH (12:38)
[2017-11-15] MEDS: FLUCONAZOLE 100 MG TAB PO SCH (12:38)
== END 2017-11-15 13:20 | DRG 853 ==
LOC: EDH 09:24 → OBSVTOIN 10:15 → EDHIP 10:15 → 3BH 14:39 → 2CH 11-04 17:44 → 2BH 11-05 17:41 → 3CH 11-06 19:44
PROVIDERS: ADMIT Internal Medicine; ATTEND Internal Medicine
PROC: 30233N1 Transfusion of Nonautologous Red Blood Cells into Peripheral Vein, Percutaneous Approach (ICD-10-PCS; 2017-11-01)
PROC: 0DBN0ZZ Excision of Sigmoid Colon, Open Approach (ICD-10-PCS; principal; 2017-11-01 10:30)
PROC: 0TQB0ZZ Repair Bladder, Open Approach (ICD-10-PCS; 2017-11-01 10:30)
PROC: 02HV33Z Insertion of Infusion Device into Superior Vena Cava, Percutaneous Approach (ICD-10-PCS; 2017-11-05)
DX: A41.9 Sepsis, unspecified organism (principal); R65.21 Severe sepsis with septic shock; J96.90 Respiratory failure, unspecified, unspecified whether with hypoxia or hypercapnia; N17.9 Acute kidney failure, unspecified; E11.22 Type 2 diabetes mellitus with diabetic chronic kidney disease; D62 Acute posthemorrhagic anemia; E66.01 Morbid (severe) obesity due to excess calories; E87.0 Hyperosmolality and hypernatremia; I13.0 Hypertensive heart and chronic kidney disease with heart failure and stage 1 through stage 4 chronic kidney disease, or unspecified chronic kidney disease; N32.1 Vesicointestinal fistula; N39.0 Urinary tract infection, site not specified; J44.1 Chronic obstructive pulmonary disease with (acute) exacerbation; K56.7 Ileus, unspecified; K91.89 Other postprocedural complications and disorders of digestive system; N04.9 Nephrotic syndrome with unspecified morphologic changes; N32.2 Vesical fistula, not elsewhere classified; I50.9 Heart failure, unspecified; J44.9 Chronic obstructive pulmonary disease, unspecified; B96.20 Unspecified Escherichia coli [E. coli] as the cause of diseases classified elsewhere; E78.5 Hyperlipidemia, unspecified; E86.0 Dehydration; E87.6 Hypokalemia; G47.33 Obstructive sleep apnea (adult) (pediatric); I25.10 Atherosclerotic heart disease of native coronary artery without angina pectoris; I25.2 Old myocardial infarction; K21.9 Gastro-esophageal reflux disease without esophagitis; K57.30 Diverticulosis of large intestine without perforation or abscess without bleeding; K66.0 Peritoneal adhesions (postprocedural) (postinfection); M10.9 Gout, unspecified; N18.3 Chronic kidney disease, stage 3 (moderate); N40.0 Benign prostatic hyperplasia without lower urinary tract symptoms; Z16.12 Extended spectrum beta lactamase (ESBL) resistance; Z79.52 Long term (current) use of systemic steroids; Z87.440 Personal history of urinary (tract) infections; Z87.891 Personal history of nicotine dependence; Z90.6 Acquired absence of other parts of urinary tract; Z93.3 Colostomy status; Z95.5 Presence of coronary angioplasty implant and graft; Z68.32 Body mass index [BMI] 32.0-32.9, adult
CPT/HCPCS: 36415; 36430; 36600; 71045; 74176; 80048; 80053; 80076; 80202; 81001; 82140; 82330; 82435; 82550; 82553; 82803; 82947; 82948; 83605; 83735; 83874; 83880; 84100; 84132; 84153; 84295; 84484; 85018; 85025; 85027; 85610; 85730; 86156; 86850; 86870; 86900; 86901; 86922; 87088; 87186; 88307; 93005; 93306; 97039; A4218; A4344; C1894; C9113; J0610; J1100; J1450; J1650; J1720; J1815; J1940; J1956; J2001; J2175; J2185; J2250; J2270; J2370; J2704; J2710; J2920; J3010; J3370; J3475; J3480; J3490; J7030; J7040; J7042; J7060; J7070; J7120; J7512; P9016; P9046; Q9963

== ENCOUNTER → 2017-11-26 | Outpatient (CLI) | payer OTHER, MEDICARE ==
[~2017-11-26] MED LIST changes: +ATOR40TA69 PO; +LEVO500T2 PO; -METO2.5T2 PO; +PENI500T2 PO; -PRAV40TA3 PO; -ROSU10TA PO; +TRAM50TA4 PO; -TYL3 PO
== END | disposition home or self-care (01) ==
LOC: RAH 10:39
PROVIDERS: ATTEND Surgery
DX: Z48.815 Encounter for surgical aftercare following surgery on the digestive system (principal)
CPT/HCPCS: 74430

== ENCOUNTER 2018-02-08 14:30 | Emergency (ER) | payer MEDICARE ==
[2018-02-08 16:31] LABS: APPEARANCE,URINE Clear (CLEAR); BILIRUBIN,URINE Negative (NEGATIVE); COLOR,URINE Yellow (YELLOW); GLUCOSE, URINE (UA) Negative (NEGATIVE); KETONES,URINE Negative (NEGATIVE); LEUKOCYTE ESTERASE ,URINE Moderate (NEGATIVE); NITRATE,URINE Negative (NEGATIVE); OCCULT BLOOD,URINE Negative (NEGATIVE); PROTEIN,URINE Trace (NEGATIVE); UROBILINOGEN,URINE 0.2 mg/dL (0.2-1.0)
[2018-02-08] MEDS ORDERED: TRAMADOL HCL 50 MG TABLET ONE (16:37)
[2018-02-08 16:41] LABS: BACTERIA,URINE None Seen /HPF (None Seen); RBC,URINE None Seen /HPF (0-1)
[2018-02-08] MEDS ORDERED: METHYLPREDNISOLONE SOD SUCC 125MG/2ML VIAL ONE (17:57)
== END 2018-02-08 18:44 | disposition home or self-care (01) ==
LOC: EDH 14:30
DX: M25.551 Pain in right hip (principal); Z79.899 Other long term (current) drug therapy; Z87.891 Personal history of nicotine dependence
CPT/HCPCS: 36415; 73502; 81001; 84550; 85651; 96372; 99285; J2930

== ENCOUNTER 2019-05-09 09:32 | Inpatient (IN) | payer MEDICARE | END 2019-05-13 17:20 | disposition home or self-care (01) | LOC: EDH 09:32 → EDHIP 13:20 → 3CH 18:04 | DX: A41.50 Gram-negative sepsis, unspecified (principal); J18.9 Pneumonia, unspecified organism; N39.0 Urinary tract infection, site not specified ==

== ENCOUNTER → 2019-11-14 | Outpatient (CLI) | payer MEDICARE ==
[~2019-11-14] MED LIST changes: -AEC81 PO; -ATOR40TA69 PO; -CLOP75TA32 PO; +CYAN1TAB44 PO; +FOLI0.8C PO; +GABA-529 PO; +ICOS1CAP PO; -LEVO500T2 PO; +OMEP20CA12 PO; -PENI500T2 PO; +PRAV40TA3 PO; -PRED10TA3 PO
== END | disposition home or self-care (01) ==
LOC: RAH 12:41
PROVIDERS: ATTEND Neurological Surgery
DX: M50.222 Other cervical disc displacement at C5-C6 level (principal); M48.02 Spinal stenosis, cervical region; M47.812 Spondylosis without myelopathy or radiculopathy, cervical region
CPT/HCPCS: 72141

== ENCOUNTER → 2020-02-21 | Outpatient (CLI) | payer MEDICARE | END | disposition home or self-care (01) | LOC: SHCH 09:53 | PROVIDERS: ATTEND Internal Medicine Cardiovascular Disease | DX: R01.1 Cardiac murmur, unspecified (principal); R09.89 Other specified symptoms and signs involving the circulatory and respiratory systems | CPT/HCPCS: 93306; 93356; 93880 ==

== ENCOUNTER → 2020-02-22 | Outpatient (CLI) | payer MEDICARE ==
[~2020-02-22] VITALS: Ht 167.6 cm; Wt 88.9 kg
[~2020-02-22] MED LIST changes: -ALLO100T PO; -CYAN1TAB44 PO; -FOLI0.8C PO; -FURO40TA5 PO; -GABA-529 PO; -ICOS1CAP PO; -METO100T14 PO; -OMEP20CA12 PO; -PRAV40TA3 PO; +REGADENOSON 0.4 MG/5 ML PF SYG IVP SCH; -TRAM50TA4 PO
== END | disposition home or self-care (01) ==
LOC: SHCH 07:55
PROVIDERS: ATTEND Internal Medicine Cardiovascular Disease
DX: I10 Essential (primary) hypertension (principal); R06.00 Dyspnea, unspecified; I25.10 Atherosclerotic heart disease of native coronary artery without angina pectoris
CPT/HCPCS: 78452; 93017; 96374; A9500 ×2; J2785

== ENCOUNTER 2021-04-13 09:47 | Emergency (ER) | payer MEDICARE ==
[~2021-04-13] VITALS: Ht 172.7 cm; Wt 89.8 kg
[~2021-04-13 09:47] MED LIST changes: +ALLO100T PO; +CYAN1TAB44 PO; +FOLI0.8C PO; +FURO40TA5 PO; +GABA-529 PO; +ICOS1CAP PO; +METO100T14 PO; +OMEP20CA12 PO; +PRAV40TA3 PO; -REGADENOSON 0.4 MG/5 ML PF SYG IVP SCH; +TRAM50TA4 PO
[2021-04-13 10:05] VITALS: BP 114/57
[2021-04-13 10:21] VITALS: BP 115/60
[2021-04-13 10:36] VITALS: BP 112/61
[2021-04-13 10:55] VITALS: BP 103/51
[2021-04-13 11:23] VITALS: BP 116/59
[2021-04-13] MEDS ORDERED: KETOROLAC 30MG VIAL (30MG/ML) IM ONE (11:30)
== END 2021-04-13 12:18 | disposition home or self-care (01) ==
LOC: EDH 09:47
DX: S20.221A Contusion of right back wall of thorax, initial encounter (principal); S09.90XA Unspecified injury of head, initial encounter; R04.2 Hemoptysis; C34.01 Malignant neoplasm of right main bronchus; E78.00 Pure hypercholesterolemia, unspecified; I10 Essential (primary) hypertension; I21.9 Acute myocardial infarction, unspecified; I25.10 Atherosclerotic heart disease of native coronary artery without angina pectoris; Z79.899 Other long term (current) drug therapy; Z95.5 Presence of coronary angioplasty implant and graft; X58.XXXA Exposure to other specified factors, initial encounter; Y93.89 Activity, other specified; Y92.89 Other specified places as the place of occurrence of the external cause; Y99.8 Other external cause status
CPT/HCPCS: 70450; 71250; 93005; 96372; 99285; J1885

== ENCOUNTER 2021-05-09 20:33 | Inpatient (IN) | payer MEDICARE ==
[~2021-05-09] VITALS: Ht 165.1 cm; Wt 85.0 kg
[2021-05-09 21:23] LABS: BASOPHILS % (AUTO) 0.5 % (0.0-5.0); EOSINOPHILS % (AUTO) 1.8 % (0.0-8.0); HEMATOCRIT 39.9 % (42-54); LYMPHOCYTES % (AUTO) 6.4 % (21.0-51.0); MEAN CORPUSCULAR HEMOGLOBIN 22.9 pg (27.0-33.0); MEAN CORPUSCULAR HGB CONC 29.6 g/dL (32.0-36.0); MEAN CORPUSCULAR VOLUME 77.5 fL (79-99); MONOCYTES % (AUTO) 4.3 % (3.0-13.0); PLATELET COUNT (AUTO) 327 K/uL (130-400); RED BLOOD CELL COUNT(AUTO) 5.15 MIL/uL (4.50-6.20); RED CELL DISTRIBUTION WIDTH 20.6 % (11.0-15.5); WHITE BLOOD COUNT (AUTO) 17.3 K/uL (4.8-10.8)
[2021-05-09 21:31] LABS: APPEARANCE,URINE Clear (CLEAR); BILIRUBIN,URINE Negative (NEGATIVE); COLOR,URINE Yellow (YELLOW); GLUCOSE, URINE (UA) Negative (NEGATIVE); KETONES,URINE Negative (NEGATIVE); LEUKOCYTE ESTERASE ,URINE Negative (NEGATIVE); NITRATE,URINE Negative (NEGATIVE); OCCULT BLOOD,URINE Negative (NEGATIVE); PROTEIN,URINE POS 1+ mg/dL (NEGATIVE); UROBILINOGEN,URINE 0.2 mg/dL (0.2-1.0)
[2021-05-09 21:32] LABS: CREATININE 3.6 mg/dL (0.5-1.5); POTASSIUM 5.3 mmol/L (3.5-5.1)
[2021-05-09 21:37] LABS: ALBUMIN 3.4 g/dL (3.5-5.0); BILIRUBIN,TOTAL 0.5 mg/dL (0.2-1.0); TOTAL PROTEIN, SERUM 8.3 g/dL (6.0-8.3)
[2021-05-09 21:43] LABS: BACTERIA,URINE Rare /HPF (None Seen); RBC,URINE 0-1 /HPF (0-1); WBC,URINE 0-1 /HPF (0-1)
[2021-05-09 21:44] LABS: SQUAMOUS EPITHELIAL CELL,UR Few /HPF (0-2)
[2021-05-09] MEDS ORDERED: CEFTRIAXONE 1G VIAL IVP ONE (22:00)
[2021-05-09] MEDS ORDERED: 0.9% NACL 250ML IVPB ONE (22:00)
[2021-05-09] MEDS ORDERED: AZITHROMYCIN 500MG VIAL IVPB ONE (22:00)
[2021-05-09] MEDS ORDERED: AZITHROMYCIN 500MG+NS 250ML 250 ML IV ONE (22:21)
[2021-05-09] MEDS ORDERED: 0.9%NACL 1000ML 1,000 ML IV ONE (22:24)
[2021-05-10] VITALS (10 sets, daily range): BP systolic 95–156; BP diastolic 35–87
[2021-05-10] MEDS ORDERED: ONDANSETRON 4MG TABLET PO PRN
[2021-05-10] MEDS: CEFEPIME HCL 1 GM VIAL IVP SCH ×3 (00:57→23:26)
[2021-05-10] MEDS: ACETAMINOPHEN 325 MG TAB PO PRN ×2 (00:57→15:17)
[2021-05-10] MEDS ORDERED: 0.9%NACL 1000ML 1,000 ML IV ONE (01:25)
[2021-05-10] MEDS ORDERED: LEVOFLOXACIN 500 MG/D5W 100 ML 100 ML ONE (03:22)
[2021-05-10 05:34] LABS: BASOPHILS % (AUTO) 0.4 % (0.0-5.0); EOSINOPHILS % (AUTO) 1.3 % (0.0-8.0); HEMATOCRIT 32.2 % (42-54); LYMPHOCYTES % (AUTO) 11.1 % (21.0-51.0); MEAN CORPUSCULAR HEMOGLOBIN 22.6 pg (27.0-33.0); MEAN CORPUSCULAR HGB CONC 29.8 g/dL (32.0-36.0); MEAN CORPUSCULAR VOLUME 75.9 fL (79-99); MONOCYTES % (AUTO) 7.8 % (3.0-13.0); NEUTROPHILS % (AUTO) 77.8 % (40.0-77.0); PLATELET COUNT (AUTO) 283 K/uL (130-400); RED BLOOD CELL COUNT(AUTO) 4.24 MIL/uL (4.50-6.20); RED CELL DISTRIBUTION WIDTH 19.9 % (11.0-15.5); WHITE BLOOD COUNT (AUTO) 19.1 K/uL (4.8-10.8)
[2021-05-10 05:52] LABS: MAGNESIUM 1.8 mg/dL (1.80-2.40)
[2021-05-10] MEDS ORDERED: ENOXAPARIN SODIUM 30 MG/0.3 ML SQ SCH (09:00)
[2021-05-10] MEDS ORDERED: IPRATROPIUM/ALBUTEROL SULFATE 3 ML SOLUTION IH PRN (11:30)
[2021-05-10] MEDS ORDERED: MAGNESIUM 2GM PREMIX 50ML 50 ML IV PRN (11:30)
[2021-05-10] MEDS: HEPARIN 5,000 UNIT VIAL SQ SCH ×2 (11:30→23:38)
[2021-05-10] MEDS ORDERED: FUROSEMIDE 40MG VIAL IV ONE (13:00)
[2021-05-10] MEDS: GABAPENTIN 100 MG CAPSULE PO SCH (20:38)
[2021-05-10] MEDS: ATORVASTATIN 10 MG TABLET PO SCH (20:38)
[2021-05-10] MEDS: METOPROLOL TARTRATE 50 MG TAB PO SCH (20:38)
[2021-05-11 04:37] VITALS: BP 120/55
[2021-05-11 05:22] LABS: HEMATOCRIT 31.9 % (42-54); MEAN CORPUSCULAR HEMOGLOBIN 22.6 pg (27.0-33.0); MEAN CORPUSCULAR HGB CONC 29.8 g/dL (32.0-36.0); RED BLOOD CELL COUNT(AUTO) 4.2 MIL/uL (4.50-6.20); RED CELL DISTRIBUTION WIDTH 19.9 % (11.0-15.5); WHITE BLOOD COUNT (AUTO) 13.5 K/uL (4.8-10.8)
[2021-05-11 05:52] LABS: CREATININE 2.2 mg/dL (0.5-1.5); MAGNESIUM 2.1 mg/dL (1.80-2.40); POTASSIUM 4.9 mmol/L (3.5-5.1)
[2021-05-11] MEDS: **HM**(Icosapent Ethyl (Vascepa) 2 GM PO SCH ×2 (08:00→16:03)
[2021-05-11] MEDS: **HM**(Folic Acid 0.8 MG PO SCH (09:00)
[2021-05-11] MEDS: CYANOCOBALAMIN PO SCH (09:00)
[2021-05-11] MEDS: FOLIC ACID PO SCH (09:00)
[2021-05-11] MEDS: LEVOFLOXACIN 500 MG/D5W 100 ML 100 ML IV SCH (09:01)
[2021-05-11] MEDS: PANTOPRAZOLE 40 MG TAB DR PO SCH (09:02)
[2021-05-11] MEDS: METOPROLOL TARTRATE 50 MG TAB PO SCH ×2 (09:02→19:58)
[2021-05-11] MEDS: FAMOTIDINE 20MG TAB PO SCH (09:02)
[2021-05-11] MEDS: ALLOPURINOL 100 MG TABLET PO SCH (09:02)
[2021-05-11 09:39] VITALS: BP 151/87
[2021-05-11] MEDS: CEFEPIME HCL 1 GM VIAL IVP SCH (12:00)
[2021-05-11 12:31] VITALS: BP 113/61
[2021-05-11] MEDS: HEPARIN 5,000 UNIT VIAL SQ SCH (12:46)
[2021-05-11 16:39] VITALS: BP 136/63
[2021-05-11] MEDS: ATORVASTATIN 10 MG TABLET PO SCH (19:58)
[2021-05-11] MEDS: SODIUM BICARBONATE 650 MG TAB PO SCH (19:58)
[2021-05-11] MEDS: GABAPENTIN 100 MG CAPSULE PO SCH (19:58)
[2021-05-11 20:09] VITALS: BP 132/68
[2021-05-11 23:32] VITALS: BP 103/50
[2021-05-12] MEDS: CEFEPIME HCL 1 GM VIAL IVP SCH ×2 (00:05→11:11)
[2021-05-12] MEDS: HEPARIN 5,000 UNIT VIAL SQ SCH ×2 (00:06→11:13)
[2021-05-12 03:22] VITALS: BP 132/66
[2021-05-12 04:30] LABS: BASOPHILS % (AUTO) 0.8 % (0.0-5.0); EOSINOPHILS % (AUTO) 3.9 % (0.0-8.0); HEMATOCRIT 33.4 % (42-54); LYMPHOCYTES % (AUTO) 16.8 % (21.0-51.0); MEAN CORPUSCULAR HEMOGLOBIN 22.4 pg (27.0-33.0); MEAN CORPUSCULAR HGB CONC 29.6 g/dL (32.0-36.0); MEAN CORPUSCULAR VOLUME 75.6 fL (79-99); MONOCYTES % (AUTO) 7.4 % (3.0-13.0); NEUTROPHILS % (AUTO) 69.1 % (40.0-77.0); PLATELET COUNT (AUTO) 302 K/uL (130-400); RED BLOOD CELL COUNT(AUTO) 4.42 MIL/uL (4.50-6.20); RED CELL DISTRIBUTION WIDTH 19.9 % (11.0-15.5); WHITE BLOOD COUNT (AUTO) 10.9 K/uL (4.8-10.8)
[2021-05-12 04:53] LABS: ALBUMIN 2.5 g/dL (3.5-5.0); BILIRUBIN,TOTAL 0.3 mg/dL (0.2-1.0); CREATININE 1.9 mg/dL (0.5-1.5); PHOSPHORUS 3.5 mg/dL (2.5-4.9); POTASSIUM 4.9 mmol/L (3.5-5.1); TOTAL PROTEIN, SERUM 6.8 g/dL (6.0-8.3); URIC ACID 4.1 mg/dL (2.6-7.2)
[2021-05-12 05:21] LABS: % IRON SATURATION 7.6 % (30-44)
[2021-05-12 08:00] VITALS: BP 101/43
[2021-05-12] MEDS: **HM**(Icosapent Ethyl (Vascepa) 2 GM PO SCH ×2 (08:00→16:06)
[2021-05-12] MEDS: SODIUM BICARBONATE 650 MG TAB PO SCH ×2 (08:07→20:35)
[2021-05-12] MEDS: FOLIC ACID PO SCH (08:08)
[2021-05-12] MEDS: METOPROLOL TARTRATE 50 MG TAB PO SCH ×2 (08:08→20:35)
[2021-05-12] MEDS: PANTOPRAZOLE 40 MG TAB DR PO SCH (08:08)
[2021-05-12] MEDS: FAMOTIDINE 20MG TAB PO SCH (08:08)
[2021-05-12] MEDS: ALLOPURINOL 100 MG TABLET PO SCH (08:08)
[2021-05-12] MEDS: **HM**(Folic Acid 0.8 MG PO SCH (08:08)
[2021-05-12] MEDS: CYANOCOBALAMIN PO SCH (08:08)
[2021-05-12 11:56] VITALS: BP 111/41
[2021-05-12 16:00] VITALS: BP 120/43
[2021-05-12 20:00] VITALS: BP 104/49
[2021-05-12] MEDS: ATORVASTATIN 10 MG TABLET PO SCH (20:35)
[2021-05-12] MEDS: GABAPENTIN 100 MG CAPSULE PO SCH (20:35)
[2021-05-12] MEDS: ACETAMINOPHEN 325 MG TAB PO PRN (20:41)
[2021-05-12 23:42] VITALS: BP 113/56
[2021-05-13] MEDS: HEPARIN 5,000 UNIT VIAL SQ SCH ×2 (00:02→11:30)
[2021-05-13] MEDS: CEFEPIME HCL 1 GM VIAL IVP SCH ×2 (00:03→12:00)
[2021-05-13 04:15] VITALS: BP 116/50
[2021-05-13 05:28] LABS: MEAN CORPUSCULAR HEMOGLOBIN 22.4 pg (27.0-33.0); MEAN CORPUSCULAR HGB CONC 28.8 g/dL (32.0-36.0); MEAN CORPUSCULAR VOLUME 77.6 fL (79-99); RED BLOOD CELL COUNT(AUTO) 4.38 MIL/uL (4.50-6.20); RED CELL DISTRIBUTION WIDTH 19.9 % (11.0-15.5); WHITE BLOOD COUNT (AUTO) 9.4 K/uL (4.8-10.8)
[2021-05-13 05:49] LABS: CREATININE 1.8 mg/dL (0.5-1.5); POTASSIUM 4.8 mmol/L (3.5-5.1)
[2021-05-13 08:00] VITALS: BP 142/73
[2021-05-13] MEDS: **HM**(Icosapent Ethyl (Vascepa) 2 GM PO SCH (08:00)
[2021-05-13] MEDS: **HM**(Folic Acid 0.8 MG PO SCH (09:00)
[2021-05-13] MEDS: FOLIC ACID PO SCH (09:00)
[2021-05-13] MEDS: CYANOCOBALAMIN PO SCH (09:00)
[2021-05-13] MEDS: PANTOPRAZOLE 40 MG TAB DR PO SCH (09:48)
[2021-05-13] MEDS: ALLOPURINOL 100 MG TABLET PO SCH (09:48)
[2021-05-13] MEDS: SODIUM BICARBONATE 650 MG TAB PO SCH (09:48)
[2021-05-13] MEDS: FAMOTIDINE 20MG TAB PO SCH (09:48)
[2021-05-13] MEDS: METOPROLOL TARTRATE 50 MG TAB PO SCH (09:49)
[2021-05-13] MEDS: ACETAMINOPHEN 325 MG TAB PO PRN (09:50)
[2021-05-13] MEDS: LEVOFLOXACIN 500 MG/D5W 100 ML 100 ML IV SCH (09:50)
[2021-05-13 12:00] VITALS: BP 120/60
== END 2021-05-13 15:30 | disposition home or self-care (01) | DRG 193 ==
LOC: EDH 20:33 → EDHIP 23:58 → 3AH 05-10 09:34
PROVIDERS: ADMIT Internal Medicine Infectious Disease; ATTEND Internal Medicine Infectious Disease
DX: J18.9 Pneumonia, unspecified organism (principal); J96.91 Respiratory failure, unspecified with hypoxia; N17.0 Acute kidney failure with tubular necrosis; E87.2 Acidosis; Z91.19 Patient's noncompliance with other medical treatment and regimen; E66.9 Obesity, unspecified; E87.5 Hyperkalemia; D64.9 Anemia, unspecified; N18.32 Chronic kidney disease, stage 3b; M10.9 Gout, unspecified; Z20.822 Contact with and (suspected) exposure to COVID-19; K21.9 Gastro-esophageal reflux disease without esophagitis; R53.81 Other malaise; E83.42 Hypomagnesemia; I25.10 Atherosclerotic heart disease of native coronary artery without angina pectoris; E78.5 Hyperlipidemia, unspecified; Z68.31 Body mass index [BMI] 31.0-31.9, adult; I13.10 Hypertensive heart and chronic kidney disease without heart failure, with stage 1 through stage 4 chronic kidney disease, or unspecified chronic kidney disease; R91.8 Other nonspecific abnormal finding of lung field; E86.0 Dehydration; Z53.9 Procedure and treatment not carried out, unspecified reason; Z87.440 Personal history of urinary (tract) infections; Z87.891 Personal history of nicotine dependence
CPT/HCPCS: 36415; 71045; 71250; 78582; 80048; 80053; 81001; 82378; 82728; 82948; 83540; 83550; 83605; 83735; 83880; 84100; 84145; 84484; 84550; 85025; 85027; 85378; 87040; 87635; 87804; 93306; 93356; A9540; A9558; C9803; G0378; J0456; J0692; J0696; J1644; J1940; J1956; J3475; J7030

== ENCOUNTER 2021-06-02 03:19 | Emergency (ER) | payer MEDICARE ==
[~2021-06-02 03:19] MED LIST changes: -FURO40TA5 PO; -TRAM50TA4 PO
== END 2021-06-02 03:21 | disposition left against medical advice (07) ==
LOC: EDH 03:19
DX: R50.9 Fever, unspecified (principal); Z53.21 Procedure and treatment not carried out due to patient leaving prior to being seen by health care provider